=== PATIENT | male | born 2000 | race American Indian/Alaskan Native ===

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

== ENCOUNTER 2019-04-15 15:07 | Emergency (ER) | payer MEDICAID, OTHER ==
[2019-04-15 15:41] VITALS: BP 140/64
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
== END 2019-04-15 17:09 | disposition home or self-care (01) ==
LOC: DL.ED 15:07
DX: S62.316A Displaced fracture of base of fifth metacarpal bone, right hand, initial encounter for closed fracture (principal); J45.909 Unspecified asthma, uncomplicated; F17.210 Nicotine dependence, cigarettes, uncomplicated; X58.XXXA Exposure to other specified factors, initial encounter
CPT/HCPCS: 73130-RT; 99283-25

== ENCOUNTER 2021-07-05 23:30 | Emergency (ER) | payer OTHER, MEDICAID ==
[~2021-07-05 23:30] MED LIST: Iopamidol 612 MG/ML 100 ML Bottle IVPUSH ONE
[2021-07-05 23:34] VITALS: BP 117/61
[2021-07-05 23:39] LABS: ANION GAP 17.7 mEq/L (7-13); CHLORIDE,CL 106 mmol/L (98-107); SODIUM,NA 146 mmol/L (136-145)
[2021-07-05 23:45] LABS: ACETAMINOPHEN 0 ug/mL (10-30 (Therapeutic))
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
== END 2021-07-06 00:25 | disposition home or self-care (01) ==
LOC: DL.ED 23:30
DX: S02.2XXA Fracture of nasal bones, initial encounter for closed fracture (principal); S00.83XA Contusion of other part of head, initial encounter; S80.812A Abrasion, left lower leg, initial encounter; S00.501A Unspecified superficial injury of lip, initial encounter; V03.10XA Pedestrian on foot injured in collision with car, pick-up truck or van in traffic accident, initial encounter
CPT/HCPCS: 36415; 70450; 70486; 71260; 72125; 74177; 80053; 80143; 80179; 80307; 85025; 93005; 93010; 99284-25; 99285; Q9967

== ENCOUNTER 2024-05-22 10:24 | Emergency (ER) | payer BC, MEDICAID ==
[2024-05-22 11:28] VITALS: BP 140/82; PULSE 78
== END 2024-05-22 12:24 | disposition home or self-care (01) ==
LOC: DL.ED 10:24
DX: S90.31XA Contusion of right foot, initial encounter (principal); W31.89XA Contact with other specified machinery, initial encounter
CPT/HCPCS: 73630-RT; 99282; 99283